=== PATIENT | male | born 1940 | race Caucasian/White ===

== ENCOUNTER → 2021-10-14 | Outpatient (REF) | payer MEDICARE, BC | LOC: M SFHCRHEU 14:26 | PROVIDERS: ATTEND Internal Medicine | DX: M35.3 Polymyalgia rheumatica (principal) | CPT/HCPCS: 85652; 86140; 86200; G0463 ==

== ENCOUNTER → 2023-06-23 | Outpatient (CLI) | payer MEDICARE, BC | LOC: M PLAIMG 11:27 | PROVIDERS: ATTEND Internal Medicine Cardiovascular Disease | DX: I10 Essential (primary) hypertension (principal) ==

== ENCOUNTER → 2023-12-10 | Outpatient (CLI) | payer MEDICARE, BC | LOC: M PLAIMG 08:38 | PROVIDERS: ATTEND Internal Medicine Cardiovascular Disease | DX: I35.0 Nonrheumatic aortic (valve) stenosis (principal) ==

== ENCOUNTER → 2024-06-19 | Outpatient (CLI) | payer MEDICARE | LOC: M PLAIMG 08:53 | PROVIDERS: ATTEND Internal Medicine Cardiovascular Disease | DX: I08.0 Rheumatic disorders of both mitral and aortic valves (principal); I11.0 Hypertensive heart disease with heart failure ==

== ENCOUNTER → 2024-10-27 | Outpatient (CLI) | payer MEDICARE | LOC: M CARPUL 10:12 | PROVIDERS: ATTEND Internal Medicine Cardiovascular Disease | DX: I08.3 Combined rheumatic disorders of mitral, aortic and tricuspid valves (principal); I27.20 Pulmonary hypertension, unspecified ==

== ENCOUNTER → 2025-06-12 | Outpatient (CLI) | payer MEDICARE, BC | LOC: M PLAIMG 10:28 | PROVIDERS: ATTEND Registered Nurse | DX: I50.22 Chronic systolic (congestive) heart failure (principal); Z95.3 Presence of xenogenic heart valve; I08.1 Rheumatic disorders of both mitral and tricuspid valves ==

== ENCOUNTER → 2025-10-18 | Outpatient (CLI) | payer MEDICARE, BC ==
[~2025-10-18] MED LIST: ALLO100T PO; ASPI81TA26 PO; ATOR40TA75 PO; DAPA10TA5 PO; ELIQ5TAB PO; ENTR1TAB4 PO; FERR1TAB8 PO; GNP45TAB2 PO; LEVO75TA4 PO; SACUBITRIL-VALSARTAN PO; SPIR-10 PO; STOO100C30 PO; XALA0.007 OU
== END ==
LOC: M EKG 08:24
PROVIDERS: ATTEND Nurse Practitioner Family
DX: I48.21 Permanent atrial fibrillation (principal)